=== PATIENT | female | born 1960 | race Caucasian/White ===

== ENCOUNTER → 2019-02-23 | Outpatient (CLI) | payer OTHER ==
[~2019-02-23] MED LIST: CHOL200014 PO; ESTR0.5T3 PO; FISH1CAP15 PO; FOLI1TAB24 PO; MAGN250T13 PO
--- NOTE | 2019-02-23 11:06 | Diagnostic Imaging Report ---
INDICATION: Routine screening. COMPARISON: No prior mammograms are available for comparison. TECHNIQUE: 2D and 3D bilateral screening mammography was performed with CAD. FINDINGS: The patient has bilateral breast implants. There are calcifications along the implant shells bilaterally. No definite evidence of extracapsular rupture is seen. Scattered fibroglandular densities in both breasts are noted. No mass or malignant appearing microcalcifications are seen. The axillae are unremarkable. IMPRESSION: No mammographic features suspicious for malignancy are identified. ACR BI-RADS Category 2: Benign findings. Result letter will be mailed to the patient. Note: At least 10% of breast cancer is not imaged by mammography. Dictated by: Dictated on workstation # [id number]
== END ==
LOC: RAD 09:32
PROVIDERS: ATTEND Nurse Practitioner Primary Care
DX: Z12.31 Encounter for screening mammogram for malignant neoplasm of breast (principal)
CPT/HCPCS: 77067

== ENCOUNTER 2019-02-25 06:14 | Outpatient (CLI) | payer OTHER ==
[~2019-02-25] VITALS: Ht 157 cm; Wt 56.8 kg
[2019-02-25] MEDS ORDERED: FOLI1TAB24 PO (11:57)
[2019-02-25] MEDS ORDERED: MAGN250T13 PO (11:57)
[2019-02-25] MEDS ORDERED: FISH1CAP15 PO (11:57)
[2019-02-25] MEDS ORDERED: CHOL200014 PO (11:57)
[2019-02-25] MEDS ORDERED: ESTR0.5T3 PO (11:57)
== END 2019-02-25 12:07 | disposition home or self-care (01) ==
LOC: PREOP 06:14
PROVIDERS: ATTEND Surgery
DX: Z01.818 Encounter for other preprocedural examination (principal)